=== PATIENT | female | born 1985 | race American Indian/Alaskan Native ===

== ENCOUNTER 2017-11-06 13:40 | Emergency (ER) | payer OTHER ==
[2017-11-06 13:49] VITALS: BP 198/113
[2017-11-06] MEDS ORDERED: CATAPRES PO ONE (13:53)
--- NOTE | 2017-11-06 14:30 | Emergency Department Report ---
ED General Adult HPI - General Chief complaint: High BP Stated complaint: HBP Time Seen by Provider: 11/06/17 14:14 Source: patient Mode of arrival: Ambulatory Limitations: No Limitations - History of Present Illness Initial comments: Patient is 32 years old female history of hypertension. Patient presented to the ER stating that she is out of her blood pressure medication. Patient stated that she was taking metoprolol 25 mg twice a day. She denied any headache, neck pain, chest pain, weakness numbness or tingling sensation. - Related Data Home Medications Medication Instructions Recorded Confirmed Last Taken Metoprolol [Lopressor] 25 mg PO BID 11/06/17 11/06/17 10/06/17 Allergies Allergy/AdvReac Type Severity Reaction Status Date / Time No Known Allergies Allergy Unverified 11/06/17 13:46 ED Review of Systems ROS: Stated complaint: HBP Other details as noted in HPI Comment: All other systems reviewed and negative Eyes: denies: eye pain Respiratory: denies: orthopnea, shortness of breath, SOB with exertion Cardiovascular: denies: chest pain, palpitations Gastrointestinal: denies: abdominal pain, nausea, vomiting ED Past Medical Hx - Past Medical History Previous Medical History?: Yes Hx Hypertension: Yes - Surgical History Past Surgical History?: No - Social History Smoking Status: Never Smoker Substance Use Type: Alcohol, Prescribed - Medications Home Medications: Home Medications Medication Instructions Recorded Confirmed Last Taken Type Metoprolol [Lopressor] 25 mg PO BID 11/06/17 11/06/17 10/06/17 History ED Physical Exam - General Limitations: No Limitations General appearance: alert, in no apparent distress - Head Head exam: Present: atraumatic, normocephalic, normal inspection - ENT ENT exam: Present: normal exam, normal orophraynx, mucous membranes moist, TM's normal bilaterally - Neck Neck exam: Present: normal inspection, full ROM. Absent: tenderness, meningismus, lymphadenopathy, thyromegaly - Respiratory Respiratory exam: Present: normal lung sounds bilaterally. Absent: respiratory distress, wheezes, rales, rhonchi, stridor, chest wall tenderness, accessory muscle use, decreased breath sounds, prolonged expiratory - Cardiovascular Cardiovascular Exam: Present: regular rate, normal rhythm, normal heart sounds - GI/Abdominal GI/Abdominal exam: Present: soft, normal bowel sounds. Absent: distended, tenderness, guarding, rebound, rigid, organomegaly, mass, bruit, pulsatile mass - Extremities Exam Extremities exam: Present: normal inspection, full ROM, normal capillary refill - Back Exam Back exam: Present: normal inspection, full ROM. Absent: tenderness, CVA tenderness (R), CVA tenderness (L), muscle spasm, paraspinal tenderness, vertebral tenderness, rash noted - Neurological Exam Neurological exam: Present: alert, oriented X3, CN II-XII intact, normal gait, reflexes normal - Skin Skin exam: Present: warm, intact, normal color ED Course Vital Signs 11/06/17 11/06/17 13:46 13:57 Temperature 98.7 F Pulse Rate 98 H 98 H Respiratory 16 Rate Blood Pressure 198/113 198/113 O2 Sat by Pulse 98 Oximetry Critical care attestation.: If time is entered above; I have spent that time in minutes in the direct care of this critically ill patient, excluding procedure time. ED Disposition Clinical Impression: Malignant hypertension Disposition: DC-01 TO HOME OR SELFCARE Is pt being admited?: No Condition: Stable Instructions: Hypertension (ED)
[2017-11-06 14:39] LABS: Hemoglobin 14.7 gm/dl (10.1-14.3); Red Blood Count 5.38 M/mm3 (3.65-5.03)
[2017-11-06 14:40] LABS: Basophils % (Auto) 0.4 % (0.0-1.8); Eosinophils # (Auto) 0.1 K/mm3 (0.0-0.4); Eosinophils % (Auto) 0.6 % (0.0-4.3); Hematocrit 44.2 % (30.3-42.9); Lymphocytes # (Auto) 2.5 K/mm3 (1.2-5.4); Lymphocytes % (Auto) 30.2 % (13.4-35.0); Mean Corpuscular HGB Conc 33 % (30-34); Mean Corpuscular Hemoglobin 27 pg (28-32); Mean Corpuscular Volume 82 fl (79-97); Monocytes # (Auto) 0.3 K/mm3 (0.0-0.8); Monocytes % (Auto) 4.1 % (0.0-7.3); Platelet Count 379 K/mm3 (140-440); Red Cell Distribution Width 14.5 % (13.2-15.2)
[2017-11-06 14:50] LABS: BUN/Creatinine Ratio 13; Blood Urea Nitrogen 10 mg/dL (7-17); Calcium 9.3 mg/dL (8.4-10.2); Hemolysis Index 7
[2017-11-06 15:39] LABS: Bacteria,Urine 1+ /HPF (Negative); Bilirubin,Urine NEG (Negative); Blood,Urine MOD (Negative); Color,Urine Yellow (Yellow); Hyaline Casts,Urine 4 /LPF; Mucus,Urine 3+ /HPF; Urobilinogen,Urine < 2.0 mg/dL (<2.0)
== END 2017-11-06 17:26 | disposition home or self-care (01) ==
LOC: ED 13:40
DX: I10 Essential (primary) hypertension (principal)
CPT/HCPCS: 36415; 80048; 81001; 85025; 99283

== ENCOUNTER 2018-01-13 13:05 | Emergency (ER) | payer SELFPAY ==
[2018-01-13] MEDS ORDERED: ZOFRAN ODT PO ONE (14:01)
[2018-01-13] MEDS ORDERED: TORADOL IM ONE (14:01)
--- NOTE | 2018-01-13 14:03 | Emergency Department Report ---
Minor Respiratory - HPI Chief Complaint: Upper Respiratory Infection Stated Complaint: NOT FEELING WELL Time Seen by Provider: 01/13/18 13:34 Duration: 3 Days Pain Location: Nose Severity: moderate Minor Respiratory: Yes Rhinorrhea, Yes Sore Throat, Yes Able to Tolerate Fluids , Yes Cough, Yes Sick Contacts, Yes Fever, No Ear Pain, No Hemoptysis, No Chest Pain, No Shortness of Breath Other History: This is a 32-year-old -[place] female who presents with nausea, fever, headache and body aches for 3 days. Patient reports symptoms started a few days ago while at work. She is currently taken TheraFlu 1 no improvement of symptoms. She also complains of generalized body aches. Patient also admits to past medical history of hypertension and off medication for several weeks. She is requesting refills for metoprolol 25 mg by mouth. She denies chest pain, shortness of breath, cough, and abdominal pain. ED Review of Systems ROS: Stated complaint: NOT FEELING WELL Other details as noted in HPI Constitutional: chills, fever ENT: congestion. denies: ear pain, throat pain Respiratory: denies: cough, shortness of breath, wheezing Cardiovascular: denies: chest pain, palpitations Gastrointestinal: nausea. denies: abdominal pain, diarrhea Musculoskeletal: myalgia (generalized body aches). denies: back pain, joint swelling, arthralgia Neurological: headache. denies: weakness, paresthesias Psychiatric: denies: anxiety, depression ED Past Medical Hx - Past Medical History Previous Medical History?: Yes Hx Hypertension: Yes - Surgical History Past Surgical History?: No - Social History Smoking Status: Never Smoker Substance Use Type: Alcohol - Medications Home Medications: Home Medications Medication Instructions Recorded Confirmed Last Taken Type Ciprofloxacin HCl [Ciprofloxacin 500 mg PO Q12H #14 tab 11/06/17 Unknown Rx TAB] Metoprolol [Lopressor TAB] 25 mg PO BID #60 tablet 11/06/17 Unknown Rx Metoprolol [Lopressor] 25 mg PO BID 11/06/17 11/06/17 10/06/17 History Cetirizine HCl [Zyrtec] 10 mg PO DAILY #30 tablet 01/13/18 Unknown Rx Fluticasone [Flonase] 1 spray NS QDAY #1 bottle 01/13/18 Unknown Rx Guaifenesin/Dm/Pseudoephedrine 1 each PO BID #10 capsule 01/13/18 Unknown Rx [Tusnel Caplet] Metoprolol [Lopressor TAB] 25 mg PO BID #30 tablet 01/13/18 Unknown Rx Minor Respiratory Exam - Exam General: Vital signs noted. No distress. Alert and acting appropriately. HEENT: Yes Pharyngeal Erythema (uvila midline, erythematous swollen is without exudate), Yes Moist Mucous Membranes, Yes Rhinorrhea (turbinate is mildly congested with mucoid discharge), No Pharyngeal Exudates, No Conjuctival Injection, No Frontal Tenderness, No Maxillary Tenderness Ear: Neither TM Bulge, Neither TM Erythema, Neither EAC Pain, Neither EAC Discharge Neck: Yes Supple, No Adenopathy Lungs: Yes Good Air Exchange, No Wheezes, No Ronchi, No Stridor, No Cough, No Labored Respirations, No Retractions, No Use of Accessory Muscles, No Other Abnormal Lung Sounds Heart: Yes Regular, No Murmur Abdomen: Yes Normal Bowel Sounds, No Tenderness, No Peritoneal Signs Skin: No Rash, No Edema Neurologic: Alert and oriented, no deficits. Musculoskeletal: Unremarkable. ED Course Vital Signs 01/13/18 13:10 Temperature 99.2 F Pulse Rate 108 H Respiratory 18 Rate Blood Pressure 156/104 O2 Sat by Pulse 100 Oximetry Vital Signs 01/13/18 01/13/18 13:10 15:43 Temperature 99.2 F 99.4 F Pulse Rate 108 H 98 H Respiratory 18 18 Rate Blood Pressure 156/104 Blood Pressure 151/103 [Right] O2 Sat by Pulse 100 98 Oximetry ED Medical Decision Making - Lab Data Lab Results 01/13/18 Range/Units 14:12 Influenza A (Rapid) Negative (Negative) Influenza B (Rapid) Negative (Negative) Group A Strep Rapid Negative (Negative) - Medical Decision Making Patient examined by me and stable. No distress noted. Blood pressure elevated on arrival. Patient off metoprolol for several weeks. Restart metoprolol 25 mg po daily. Rapid strep and flu obtained and negative. Reviewed results with patient. Start Mucinex DM, Flonase, cetirizine for upper respiratory infection. Discharged home stable. Encouraged to do supportive care for URI. Follow up with Primary Care Provider in 2-3 days for management of hypertension. Critical care attestation.: If time is entered above; I have spent that time in minutes in the direct care of this critically ill patient, excluding procedure time. ED Disposition Clinical Impression: Viral syndrome, Asymptomatic hypertension Upper respiratory infection Qualifiers: URI type: acute nasopharyngitis (common cold) Qualified Code(s): J00 - Acute nasopharyngitis [common cold] Disposition: TO HOME OR SELFCARE Is pt being admited?: No Does the pt Need Aspirin: No Condition: Stable Instructions: Upper Respiratory Infection (ED), Viral Syndrome (ED), Hypertension (ED) Additional Instructions: Increase fluid intake and rest. Wash hands frequently. Continue taking Tylenol or ibuprofen to control fever. F/U with Primary Care Provider. Return to ER if fever, SOB, or difficulty breathing after 48 hours of supportive care. Prescriptions: Cetirizine HCl [Zyrtec] 10 mg PO DAILY #30 tablet Fluticasone [Flonase] 1 spray NS QDAY #1 bottle Guaifenesin/Dm/Pseudoephedrine [Tusnel Caplet] 1 each PO BID #10 capsule Metoprolol [Lopressor TAB] 25 mg PO BID #30 tablet Referrals: [facility] [Outside] - 3-5 Days [facility] [Outside] - 3-5 Days [facility] [Outside] - 3-5 Days Forms: Work/School Release Form(ED) Time of Disposition: 15:33 Print Language: GUYANESE
[2018-01-13 15:44] VITALS: BP 151/103
== END 2018-01-13 15:46 | disposition home or self-care (01) ==
LOC: ED 13:05
DX: B34.9 Viral infection, unspecified (principal); I10 Essential (primary) hypertension; J06.9 Acute upper respiratory infection, unspecified
CPT/HCPCS: 87116; 87400; 87430; 96372; 99283; J1885; Q0162

== ENCOUNTER 2019-05-25 21:06 | Emergency (ER) | payer SELFPAY ==
--- NOTE | 2019-05-25 21:43 | Emergency Department Report ---
Blank Doc - Documentation Documentation: 34-year-old female that presents with trismus and facial swelling to left side. This initial assessment/diagnostic orders/clinical plan/treatment(s) is/are subject to change based on patient's health status, clinical progression and re- assessment by fellow clinical providers in the ED. Further treatment and workup at subsequent clinical providers discretion. Patient/guardians urged not to elope from the ED as their condition may be serious if not clinically assessed and managed. Initial orders include: 1- Patient sent to [facility] for further evaluation and treatment 2- labs
[2019-05-25 22:01] LABS: Basophils # (Auto) 0.1 K/mm3 (0.0-0.1); Basophils % (Auto) 0.5 % (0.0-1.8); Eosinophils # (Auto) 0.1 K/mm3 (0.0-0.4); Eosinophils % (Auto) 0.6 % (0.0-4.3); Hematocrit 42.3 % (30.3-42.9); Hemoglobin 13.9 gm/dl (10.1-14.3); Lymphocytes % (Auto) 17.4 % (13.4-35.0); Mean Corpuscular HGB Conc 33 % (30-34); Mean Corpuscular Volume 81 fl (79-97); Monocytes # (Auto) 0.9 K/mm3 (0.0-0.8); Monocytes % (Auto) 7.5 % (0.0-7.3); Platelet Count 347 K/mm3 (140-440); Red Blood Count 5.22 M/mm3 (3.65-5.03); Red Cell Distribution Width 14.4 % (13.2-15.2)
[2019-05-25 22:18] LABS: BUN/Creatinine Ratio 17; Blood Urea Nitrogen 15 mg/dL (7-17); Calcium 9.1 mg/dL (8.4-10.2); Hemolysis Index 7
[2019-05-25] MEDS ORDERED: HYDROcodone/ACETAMINOPHEN 5-325 MG TAB PO ONE (23:43)
--- NOTE | 2019-05-26 01:39 | Cat Scan Report ---
CT soft tissue neck with contrast INDICATION: dental abscess facial swelling. Left-sided facial swelling TECHNIQUE: Axial imaging performed through the neck with the use of 100 mL Omnipaque 300 contrast. Sagittal and coronal reconstructed images were also reviewed. All CT scans at this location are perf ormed using CT dose reduction for ALARA by means of automated exposure control. COMPARISON: None FINDINGS: Alignment: Spinal alignment is normal. Bones: There is no acute osseous abnormality. Mild multilevel discogenic DJD is present. Soft tissues: There is soft tissue swelling over the left face with a small rim-enhancing collection measuring approximately 7 mm in thickness and 2.6 cm in length as measured on image 67 of series #2 tracking over the mandibular body. On the coronal series, this finding appears to track to the base o f the last left molar. There is also abnormal lucency involving the premolars just anterior to the sm aller suggesting periapical abscess formation. There are enlarged lymph nodes in the neck which are likely reactive. The salivary glands are unremar kable. No acute vascular abnormality identified. Orbits are normal. Sinuses and mastoid air cells are clear. Visualized lung apices are clear. No acute intracranial abnormality. IMPRESSION: Inflammatory global director air and climate change the left cheek with small abscess abutting the mandible as mindy ured above and likely arising from the base of the last left mandibular molar. Additional periapical abscess formation seen anterior to this tooth. Signer Name: Patrick Thrasher MD Signed: 05/26/2019 1:34 AM Workstation Name: [id number]
[2019-05-26] MEDS ORDERED: cloNIDine 0.2 MG TAB PO ONE (02:23)
--- NOTE | 2019-05-26 02:31 | Emergency Department Report ---
ED ENT HPI - General Chief complaint: Dental/Oral Stated complaint: TOOTHACHE W/FACIAL SWELLING Time Seen by Provider: 05/25/19 21:43 Source: patient Mode of arrival: Ambulatory Limitations: No Limitations - Related Data Home Medications Medication Instructions Recorded Confirmed Last Taken Metoprolol [Lopressor] 25 mg PO BID 11/06/17 11/06/17 10/06/17 Previous Rx's Medication Instructions Recorded Last Taken Type Ciprofloxacin HCl [Ciprofloxacin 500 mg PO Q12H #14 tab 11/06/17 Unknown Rx TAB] Metoprolol [Lopressor TAB] 25 mg PO BID #60 tablet 11/06/17 Unknown Rx Cetirizine HCl [Zyrtec 10mg tab] 10 mg PO DAILY #30 tablet 01/13/18 Unknown Rx Fluticasone [Flonase] 1 spray NS QDAY #1 bottle 01/13/18 Unknown Rx Guaifenesin/Dm/Pseudoephedrine 1 each PO BID #10 capsule 01/13/18 Unknown Rx [Tusnel Caplet] Metoprolol [Lopressor TAB] 25 mg PO BID #30 tablet 01/13/18 Unknown Rx Chlorhexidine Mouthwash [Peridex] 15 ml MM BID #1 bottle 05/26/19 Unknown Rx Clindamycin [Clindamycin CAP] 300 mg PO Q6H 10 Days #40 capsule 05/26/19 Unknown Rx Metoprolol [Lopressor TAB] 50 mg PO BID #60 tablet 05/26/19 Unknown Rx traMADoL [Ultram] 50 mg PO Q6HR PRN #12 tablet 05/26/19 Unknown Rx Allergies Allergy/AdvReac Type Severity Reaction Status Date / Time No Known Allergies Allergy Unverified 11/06/17 13:46 ED Dental HPI - General Chief complaint: Dental/Oral Stated complaint: TOOTHACHE W/FACIAL SWELLING Time Seen by Provider: 05/25/19 21:43 Source: patient Mode of arrival: Ambulatory Limitations: No Limitations - Related Data Home Medications Medication Instructions Recorded Confirmed Last Taken Metoprolol [Lopressor] 25 mg PO BID 11/06/17 11/06/17 10/06/17 Previous Rx's Medication Instructions Recorded Last Taken Type Ciprofloxacin HCl [Ciprofloxacin 500 mg PO Q12H #14 tab 11/06/17 Unknown Rx TAB] Metoprolol [Lopressor TAB] 25 mg PO BID #60 tablet 11/06/17 Unknown Rx Cetirizine HCl [Zyrtec 10mg tab] 10 mg PO DAILY #30 tablet 01/13/18 Unknown Rx Fluticasone [Flonase] 1 spray NS QDAY #1 bottle 01/13/18 Unknown Rx Guaifenesin/Dm/Pseudoephedrine 1 each PO BID #10 capsule 01/13/18 Unknown Rx [Tusnel Caplet] Metoprolol [Lopressor TAB] 25 mg PO BID #30 tablet 01/13/18 Unknown Rx Chlorhexidine Mouthwash [Peridex] 15 ml MM BID #1 bottle 05/26/19 Unknown Rx Clindamycin [Clindamycin CAP] 300 mg PO Q6H 10 Days #40 capsule 05/26/19 Unknown Rx Metoprolol [Lopressor TAB] 50 mg PO BID #60 tablet 05/26/19 Unknown Rx traMADoL [Ultram] 50 mg PO Q6HR PRN #12 tablet 05/26/19 Unknown Rx Allergies Allergy/AdvReac Type Severity Reaction Status Date / Time No Known Allergies Allergy Unverified 11/06/17 13:46 ED Review of Systems ROS: Stated complaint: TOOTHACHE W/FACIAL SWELLING Other details as noted in HPI ED Past Medical Hx - Past Medical History Previous Medical History?: Yes Hx Hypertension: Yes - Surgical History Past Surgical History?: No - Social History Smoking Status: Never Smoker Substance Use Type: None - Medications Home Medications: Home Medications Medication Instructions Recorded Confirmed Last Taken Type Ciprofloxacin HCl [Ciprofloxacin 500 mg PO Q12H #14 tab 11/06/17 Unknown Rx TAB] Metoprolol [Lopressor TAB] 25 mg PO BID #60 tablet 11/06/17 Unknown Rx Metoprolol [Lopressor] 25 mg PO BID 11/06/17 11/06/17 10/06/17 History Cetirizine HCl [Zyrtec 10mg tab] 10 mg PO DAILY #30 tablet 01/13/18 Unknown Rx Fluticasone [Flonase] 1 spray NS QDAY #1 bottle 01/13/18 Unknown Rx Guaifenesin/Dm/Pseudoephedrine 1 each PO BID #10 capsule 01/13/18 Unknown Rx [Tusnel Caplet] Metoprolol [Lopressor TAB] 25 mg PO BID #30 tablet 01/13/18 Unknown Rx Chlorhexidine Mouthwash [Peridex] 15 ml MM BID #1 bottle 05/26/19 Unknown Rx Clindamycin [Clindamycin CAP] 300 mg PO Q6H 10 Days #40 capsule 05/26/19 Unknown Rx Metoprolol [Lopressor TAB] 50 mg PO BID #60 tablet 05/26/19 Unknown Rx traMADoL [Ultram] 50 mg PO Q6HR PRN #12 tablet 05/26/19 Unknown Rx ED Physical Exam - General Limitations: No Limitations ED Course Vital Signs 05/25/19 05/25/19 05/26/19 21:26 21:47 01:56 Temperature 98.4 F Pulse Rate 98 H 90 Respiratory 14 18 Rate Blood Pressure 191/118 Blood Pressure 178/99 208/137 [Left] O2 Sat by Pulse 96 99 Oximetry ED Medical Decision Making - Lab Data Result diagrams: 05/25/19 21:51 05/25/19 21:51 - Radiology Data Radiology results: report reviewed, image reviewed Findings [facility] [address] [place] [address] Cat Scan Report Signed Patient: JOAQUÍN PEREZ MR#: [id number] : 1985 Acct:[id number] Age/Sex: 34 / F ADM Date: 05/25/19 Loc: ED Attending Dr: Ordering Physician: JO ANN GUTHRIE NP Date of Service: 05/26/19 Procedure(s): CT neck w con Accession Number(s): [id number] cc: JO ANN GUTHRIE NP CT soft tissue neck with contrast INDICATION: dental abscess facial swelling. Left-sided facial swelling TECHNIQUE: Axial imaging performed through the neck with the use of 100 mL Omnipaque 300 contrast. Sagittal and coronal reconstructed images were also reviewed. All CT scans at this location are performed using CT dose reduction for ALARA by means of automated exposure control. COMPARISON: None FINDINGS: Alignment: Spinal alignment is normal. Bones: There is no acute osseous abnormality. Mild multilevel discogenic DJD is present. Soft tissues: There is soft tissue swelling over the left face with a small rim- enhancing collection measuring approximately 7 mm in thickness and 2.6 cm in length as measured on image 67 of series #2 tracking over the mandibular body. On the coronal series, this finding appears to track to the base of the last left molar. There is also abnormal lucency involving the premolars just anterior to the smaller suggesting periapical abscess formation. There are enlarged lymph nodes in the neck which are likely reactive. The salivary glands are unremarkable. No acute vascular abnormality identified. Orbits are normal. Sinuses and mastoid air cells are clear. Visualized lung apices are clear. No acute intracranial abnormality. IMPRESSION: Inflammatory change number operator the left cheek with small abscess abutting the mandible as measured above and likely arising from the base of the last left mandibular molar. Additional periapical abscess formation seen anterior to this tooth. Signer Name: Patrick Thrasher MD Signed: 05/26/2019 1:34 AM Workstation Name: [id number] Transcribed By: MAGNOLIA Dictated By: Patrick Thrasher MD Electronically Authenticated By: Patrick Thrasher MD Signed Date/Time: 05/26/194 DD/ 8 TD/TT: - Medical Decision Making CT soft tissue neck dental abscess to left lower first molar secondary abscess third premolar patient declines to discuss abscess drainage or transfer for same and states she has dentist follow-up in 2 days, I have discussed with patient importance of having dental abscesses treated as soon as possible, current symptoms are improved with clindamycin IV piggyback would DC'd to hold by mouth clindamycin, peridex, patient was tolerating by mouth intake on the right side. There is no trismus, patient advised to follow with dentist in the morning. She states she would do same. pt bp noted elevated today she is supposed to be on metoprolol 50mg po bid, for refill same until follow-up appointment with PCP. Patient will be DC'd to home in stable condition at this time. With improved pain swelling and symptoms. There is currently no headache ,no dizziness, no lightheadedness ,no chest pain ,no nausea vomiting ,no back pain, patient is alert and oriented 3 , ambulatory with steady gait and no acute distress. Critical care attestation.: If time is entered above; I have spent that time in minutes in the direct care of this critically ill patient, excluding procedure time. ED Disposition Clinical Impression: Dental abscess Disposition: DC-01 TO HOME OR SELFCARE Is pt being admited?: No Does the pt Need Aspirin: No Condition: Stable Instructions: Dental Abscess (ED) Additional Instructions: [facility], [address], [place] [address], Prescriptions: Clindamycin [Clindamycin CAP] 300 mg PO Q6H 10 Days #40 capsule Metoprolol [Lopressor TAB] 50 mg PO BID #60 tablet Chlorhexidine Mouthwash [Peridex] 15 ml MM BID #1 bottle traMADoL [Ultram] 50 mg PO Q6HR PRN #12 tablet PRN Reason: Pain Referrals: [facility] [Outside] - 3-5 Days Forms: Work/School Release Form(ED) Time of Disposition: 02:39
[2019-05-26 04:16] VITALS: BP 171/110
== END 2019-05-26 03:50 | disposition home or self-care (01) ==
LOC: ED 21:06
DX: K04.7 Periapical abscess without sinus (principal); I10 Essential (primary) hypertension; Z79.899 Other long term (current) drug therapy
CPT/HCPCS: 36415; 70491; 80048; 84703; 85025; 96365; 99284; Q9967

== ENCOUNTER 2020-05-07 14:33 | Emergency (ER) | payer SELFPAY ==
[2020-05-07 15:02] VITALS: BP 189/122
--- NOTE | 2020-05-07 15:03 | Event Note ---
ED Screening Note ED Screening Note: chest pressure sob swelling ankles off bp meds x [address] with st elevation/dep on 12 lead This initial assessment/diagnostic orders/clinical plan/treatment(s) is/are subject to change based on patients health status, clinical progression and re- assessment by fellow clinical providers in the ED. Further treatment and workup at subsequent clinical providers discretion. Patient/guardian urged not to elope from the ED as their condition may be serious if not clinically assessed and managed. Initial orders include: ro acs htn urgency
[2020-05-07 15:26] LABS: Basophils # (Auto) 0.1 K/mm3 (0.0-0.1); Basophils % (Auto) 0.9 % (0.0-1.8); Eosinophils # (Auto) 0.1 K/mm3 (0.0-0.4); Hematocrit 40.8 % (30.3-42.9); Lymphocytes # (Auto) 2.6 K/mm3 (1.2-5.4); Lymphocytes % (Auto) 33.5 % (13.4-35.0); Mean Corpuscular HGB Conc 34 % (30-34); Mean Corpuscular Volume 81 fl (79-97); Monocytes # (Auto) 0.4 K/mm3 (0.0-0.8); Monocytes % (Auto) 4.8 % (0.0-7.3); Platelet Count 352 K/mm3 (140-440); Red Blood Count 5.03 M/mm3 (3.65-5.03); Red Cell Distribution Width 15.5 % (13.2-15.2)
[2020-05-07 15:44] LABS: Alanine Aminotransferase 21 units/L (7-56); Albumin 4.1 g/dL (3.9-5); BUN/Creatinine Ratio 26; Blood Urea Nitrogen 21 mg/dL (7-17); Calcium 9.2 mg/dL (8.4-10.2); Hemolysis Index 3
== END 2020-05-07 18:30 | disposition left against medical advice (07) ==
LOC: ED 14:33
DX: R07.9 Chest pain, unspecified (principal); Z53.21 Procedure and treatment not carried out due to patient leaving prior to being seen by health care provider
CPT/HCPCS: 36415; 80053; 83880; 84484; 85025; 93005